=== PATIENT | female | born 1935 | race Two or more races ===

== ENCOUNTER 2021-08-15 08:35 | Inpatient (IN) | payer MEDICARE, OTHER ==
[~2021-08-15] VITALS: Ht 157.5 cm; Wt 70.3 kg
--- NOTE | 2021-08-15 08:35 | NUR ---
PT BIB RA 102 FROM HOME C/O ALTERED,NORMALLY TALKS,LKW TIME 0930 LAST NIGHT. PT IS AAOX0 REACTS TO PHYSICAL STIMULI, NOT IN RESPIRATORY DISTRESS, HOOKED TO SEWER REPAIRER, KEPT RESTED AND COMFORTABLE. WILL CONTINUE TO MONITOR.
--- NOTE | 2021-08-15 08:37 | NUR ---
AT BEDSIDE FOR EVAL.
--- NOTE | 2021-08-15 08:40 | NUR ---
CODE STROKE INITIATED.
--- NOTE | 2021-08-15 08:42 | NUR ---
PT IS WHEELED TO CT SCAN VIA STROKE PROTOCOL.
[2021-08-15] MEDS ORDERED: IOHEXOL-350 100 ML VIAL IV ONE (08:46)
[2021-08-15] MEDS ORDERED: IV NS 0.9% 250 ML IV ONE (08:46)
[2021-08-15] MEDS ORDERED: CT SWABBABLE VALVE TRANS SET 1 EA INFUS.SET MC ONE (08:47)
--- NOTE | 2021-08-15 08:48 | NUR ---
IV LINE ESTABLISHED BLOOD DRAWN AND SENT TO LAB.
[2021-08-15] MEDS ORDERED: IV NS 0.9% 1,000 ML BAG IV ONE (09:00)
[2021-08-15 09:05] LABS: BASOPHILS # (AUTO) 0.1 K/uL (0.0-0.2); BASOPHILS % (AUTO) 0.7 % (0.0-2.0); HEMATOCRIT 48 % (33-45); HEMOGLOBIN 16.2 g/dL (11.5-14.8); LYMPHOCYTES % (AUTO) 20.6 % (20.0-44.0); MEAN CORPUSCULAR HGB CONC 34 g/dl (31.0-36.0); MEAN CORPUSCULAR VOLUME 100 fL (82-100); MONOCYTES # (AUTO) 0.6 K/uL (0.1-1.30); MONOCYTES % (AUTO) 6.6 % (2.0-12.0); NEUTROPHILS # (AUTO) 6.8 K/uL (1.8-8.9); NEUTROPHILS % (AUTO) 71.1 % (43.0-81.0); PLATELET COUNT (AUTO) 324 K/uL (150-450); RED BLOOD CELL COUNT(AUTO) 4.82 MIL/uL (4.0-5.2); WHITE BLOOD COUNT (AUTO) 9.6 K/uL (4.3-11.0)
--- NOTE | 2021-08-15 09:21 | NUR ---
ART PT GRANDSON CALLED PER ART PT COMPLAINT LAST NIGHT ABOUT HAVING ABDOMINAL PAIN AND BURNING SENSATION UPON URINATION.
--- NOTE | 2021-08-15 09:25 | NUR ---
COVID SWAB DONE AND SENT TO LAB
[2021-08-15] MEDS ORDERED: ACETAMINOPHEN 650 MG/SUPP.RECT RC ONE ×2 (09:30→09:37)
--- NOTE | 2021-08-15 09:35 | NUR ---
URINE COLLECTED AND SENT TO LAB
[2021-08-15 09:40] LABS: CHLORIDE 106 mmol/L (98-107); POTASSIUM 3.9 mmol/L (3.5-5.1); SODIUM SERUM 141 mmol/L (136-145)
[2021-08-15 09:41] LABS: ALANINE AMINOTRANSFERASE 16 U/L (12-78); ALBUMIN 3.4 g/dL (3.4-5.0); ALKALINE PHOSPHATASE 81 U/L (46-116); ASPARTATE AMINOTRANSFERASE 22 U/L (15-37); BILIRUBIN,DIRECT 0.2 mg/dL (0.0-0.2); BILIRUBIN,TOTAL 0.5 mg/dL (0.2-1.0); CALCIUM, SERUM 8.7 mg/dL (8.5-10.1); CARBON DIOXIDE 25 mmol/L (21-32); GLUCOSE 185 mg/dL (74-106); UREA NITROGEN, BLOOD 18 mg/dL (7-18)
[2021-08-15] MEDS ORDERED: CEFTRIAXONE 1GM BAG (ER ONLY) 50 ML IV ONE ×2 (09:41→10:00)
[2021-08-15 09:42] LABS: TOTAL PROTEIN, SERUM 8.1 g/dL (6.4-8.2)
[2021-08-15 09:43] LABS: BILIRUBIN,URINE NEGATIVE (NEGATIVE); COLOR,URINE YELLOW (YELLOW); LEUKOCYTE ESTERASE ,URINE NEGATIVE (NEGATIVE); NITRITE, URINE NEGATIVE (NEGATIVE); PROTEIN,URINE NEGATIVE (NEGATIVE); UGLUCOSE NEGATIVE (NEGATIVE); UROBILINOGEN,URINE 0.2 EU/dL (0.2)
[2021-08-15 09:46] LABS: THYROID STIMULATING HORMONE 0.684 uIU/mL (0.358-3.74)
[2021-08-15 09:49] LABS: RBC,URINE 0-2 /HPF (0-2); WBC,URINE NONE SEEN /HPF (0-3)
[2021-08-15 09:50] LABS: BACTERIA,URINE None seen /HPF (None Seen); SQUAMOUS EPITHELIAL CELL,UR Few /HPF (None Seen)
--- NOTE | 2021-08-15 09:55 | NUR ---
DR. LLAMAS SPEAKING TO DR. GILBERT.
[2021-08-15] MEDS ORDERED: IV NS 0.9% 500 ML BAG IV ONE (10:00)
[2021-08-15] MEDS ORDERED: ESCI10TA PO (10:05)
[2021-08-15] MEDS ORDERED: MEMA10TA PO (10:05)
[2021-08-15] MEDS ORDERED: ATOR20TA PO (10:05)
[2021-08-15] MEDS ORDERED: FURO-144 PO (10:05)
[2021-08-15] MEDS ORDERED: ACET325T53 PO (10:05)
[2021-08-15] MEDS ORDERED: METO-358 PO (10:05)
[2021-08-15] MEDS ORDERED: APIX5TAB PO (10:05)
[2021-08-15] MEDS ORDERED: DILT-4 PO (10:05)
[2021-08-15] MEDS ORDERED: PANT20TA17 PO (10:05)
[2021-08-15] MEDS ORDERED: QUET100T PO (10:05)
[2021-08-15] MEDS ORDERED: MAG HYDROX/AL HYDROX/SIMETH 30 ML UDC PO PRN (12:00)
[2021-08-15] MEDS ORDERED: ONDANSETRON HCL/PF 4 MG/2 ML VIAL IVP PRN (12:00)
[2021-08-15] MEDS ORDERED: Z GUARD REMEDY 2 OZ OINT TP PRN (12:00)
[2021-08-15] MEDS ORDERED: ACETAMINOPHEN 325 MG TABLET PO PRN (12:00)
[2021-08-15] MEDS ORDERED: MAGNESIUM HYDROXIDE 30 ML UDC PO PRN (12:00)
[2021-08-15] MEDS ORDERED: LABETALOL 20 MG/4 ML VIAL IV ONE (13:00)
[2021-08-15] MEDS ORDERED: LABETALOL HCL IV 100MG VIAL ONE (13:15)
[2021-08-15] MEDS: IV NS 0.9% 1,000 ML IV PRN (16:48)
[2021-08-15] MEDS: APIXABAN 5 MG TABLET PO SCH (17:00)
--- NOTE | 2021-08-15 17:03 | NUR ---
PO MEDS NOT GIVEN PT FAILED SWALLOW EVAL.
--- NOTE | 2021-08-15 17:42 | NUR ---
LATEST BP 203/114 REPORTED TO AWAITING RESPONSE.
[2021-08-15] MEDS ORDERED: hydrALAZINE HCL IV 20 MG VIAL ONE (17:48)
--- NOTE | 2021-08-15 22:00 | NUR ---
PATIENT IN BED RESTING. VSS. NO ACUTE DISTRESS NOTED. WILL CONTINUE TO MONITOR. PATIENT CONNECTED TO MONITORS.
[2021-08-16] MEDS ORDERED: hydrALAZINE HCL IV 20 MG VIAL ONE (02:54)
[2021-08-16] MEDS: hydrALAZINE HCL IV 20 MG VIAL IV PRN (03:01)
--- NOTE | 2021-08-16 06:10 | NUR ---
ROOM 308-1 AFTER SHIFT CHANGE
[2021-08-16 06:19] LABS: BASOPHILS # (AUTO) 0.1 K/uL (0.0-0.2); BASOPHILS % (AUTO) 0.7 % (0.0-2.0); EOSINOPHILS % (AUTO) 0.7 % (0.0-6.0); HEMATOCRIT 45 % (33-45); HEMOGLOBIN 15.2 g/dL (11.5-14.8); LYMPHOCYTES # (AUTO) 2.3 K/uL (0.8-4.8); LYMPHOCYTES % (AUTO) 21.5 % (20.0-44.0); MEAN CORPUSCULAR HGB CONC 34 g/dl (31.0-36.0); MEAN CORPUSCULAR VOLUME 100 fL (82-100); MONOCYTES # (AUTO) 0.8 K/uL (0.1-1.30); MONOCYTES % (AUTO) 7.4 % (2.0-12.0); NEUTROPHILS # (AUTO) 7.6 K/uL (1.8-8.9); NEUTROPHILS % (AUTO) 69.7 % (43.0-81.0); PLATELET COUNT (AUTO) 318 K/uL (150-450); RED BLOOD CELL COUNT(AUTO) 4.46 MIL/uL (4.0-5.2); WHITE BLOOD COUNT (AUTO) 10.9 K/uL (4.3-11.0)
[2021-08-16] MEDS: IV NS 0.9% 1,000 ML IV PRN (06:31)
[2021-08-16 06:52] LABS: CALCIUM, SERUM 8.8 mg/dL (8.5-10.1); CREATININE 0.7 mg/dL (0.6-1.3); MAGNESIUM 1.9 mg/dL (1.8-2.4); PHOSPHORUS 3.9 mg/dL (2.5-4.9); POTASSIUM 3.7 mmol/L (3.5-5.1)
[2021-08-16] MEDS: PANTOPRAZOLE 40 MG TABLET.DR PO SCH (07:30)
--- NOTE | 2021-08-16 07:51 | NUR ---
PO MED NOT GIVEN PT STILL NOT CLEARED BY SPEECH THERAPIST FOR FAILED SWALLOW EVAL.
--- NOTE | 2021-08-16 07:58 | NUR ---
report given to Jose L ARANDA for [employer].
--- NOTE | 2021-08-16 08:20 | NUR ---
PANTRY GOODS MAKER NOTE RECEIVED REPORT FROM MANOJ CRUZ. PATIENT GIVEN IV ATB ROCEPHIN, LOBETALOL AND TOTAL OF 1.5 LITERS OF FLUIDS. WILL WAIT FOR T]PATIENT TRANSFER.
[2021-08-16] MEDS: CEFTRIAXONE 1 G in IV D5W 50 ML IV SCH (09:00)
--- NOTE | 2021-08-16 09:15 | NUR ---
GROUP INSURANCE SPECIAL AGENT NOTE RECEIVED PATIENT FROM ER TRANSPORTED VIA GURNEY. PATIENT IS ALERT AND NON VERBAL. PATIENT DOES NOT APPEAR TO BE IN PAIN AND DISCOMFORT AT THIS TIME. IV LINE AT LEFT A G 18, ON SALINE LOCK, PATENT AND INTACT. PATIENT ON ROOM AIR WITH NO SIGNS OF RESPIRATORY DISTRESS. SAFETY MEASURES ENSURED WITH BED LOCKED AND AT LOWEST POSITION. CALL LIGHT WITHIN REACH AT ALL TIMES. WILL CONTINUE TO MONITOR PATIENT.
[2021-08-16] MEDS: MEMANTINE HCL 5 MG TABLET PO SCH (09:34)
[2021-08-16] MEDS: METOPROLOL SUCCINATE 50 MG TAB.SR.24H PO SCH (09:35)
[2021-08-16] MEDS: ESCITALOPRAM OXALATE (10 MG) 10 MG TABLET PO SCH (09:35)
[2021-08-16] MEDS: DILTIAZEM HCL CD 240 MG PO SCH (09:36)
[2021-08-16] MEDS: APIXABAN 5 MG TABLET PO SCH ×2 (09:38→16:25)
[2021-08-16 16:32] VITALS: BP 134/93
--- NOTE | 2021-08-16 19:00 | NUR ---
HEALTH CARE CONSULTANT NOTE PATIENT FROM ER TRANSPORTED VIA GURNEY. PATIENT IS ALERT AND NON VERBAL. PATIENT DOES NOT APPEAR TO BE IN PAIN AND DISCOMFORT AT THIS TIME. IV LINE AT LEFT A G 18, ON SALINE LOCK, PATENT AND INTACT. PATIENT ON ROOM AIR WITH NO SIGNS OF RESPIRATORY DISTRESS. SAFETY MEASURES ENSURED WITH BED LOCKED AND AT LOWEST POSITION. CALL LIGHT WITHIN REACH AT ALL TIMES. WILL ENDORSE PATIENT FOR CONTINUITY OF CARE.
--- NOTE | 2021-08-16 19:00 | NUR ---
PRINTING PLATE MAKER OPENING NOTE RECEIVED PT IN BED, RESTING A/OX 1-2, PAKISTANI SPEAKING PT STABLE ON ROOM AIR. NO S/S OF RESPIRATORY DISTRESS. PT IS ON EXTERNAL DEPUTY ASSESSOR READING A FLUTTER / ST @ 103. NO C/O PAIN AT THIS TIME. IV ACCESS IN LEFT AC # 18, NS INFUSING @ 100ML/HR, IV IS INTACT, PATENT, AND FLUSHING WELL. SAFETY MEASURES MAINTAINED AT ALL TIMES. BED IN LOWEST LOCKED POSITION, HOB ELEVATED, SIDE RAILS UP X2. CALL LIGHT AND TABLE WITHIN REACH. WILL CONTINUE WITH PLAN OF CARE.
[2021-08-16 20:00] VITALS: BP 142/86
[2021-08-17] VITALS: BP 165/90
[2021-08-17] MEDS: IV NS 0.9% 1,000 ML IV PRN ×2 (02:59→18:18)
[2021-08-17] MEDS: hydrALAZINE HCL IV 20 MG VIAL IV PRN (03:12)
--- NOTE | 2021-08-17 03:12 | NUR ---
PT'S BP 165/90, HR 93, TEMP 98.0, RR 20, 02 SAT 96%, PER ORDER ADMINISTERED HYDRALAZINE 20MG/IML IV Q 4H PRN FOR SBP > 160. WILL CONTINUE TO MONITOR.
[2021-08-17 04:00] VITALS: BP 143/92
[2021-08-17 06:25] LABS: BASOPHILS # (AUTO) 0.1 K/uL (0.0-0.2); BASOPHILS % (AUTO) 0.7 % (0.0-2.0); EOSINOPHILS % (AUTO) 2.9 % (0.0-6.0); HEMATOCRIT 42 % (33-45); HEMOGLOBIN 13.9 g/dL (11.5-14.8); LYMPHOCYTES # (AUTO) 1.7 K/uL (0.8-4.8); LYMPHOCYTES % (AUTO) 16.9 % (20.0-44.0); MEAN CORPUSCULAR HGB CONC 33 g/dl (31.0-36.0); MEAN CORPUSCULAR VOLUME 101 fL (82-100); MONOCYTES # (AUTO) 0.9 K/uL (0.1-1.30); MONOCYTES % (AUTO) 8.3 % (2.0-12.0); NEUTROPHILS # (AUTO) 7.3 K/uL (1.8-8.9); NEUTROPHILS % (AUTO) 71.2 % (43.0-81.0); PLATELET COUNT (AUTO) 282 K/uL (150-450); RED BLOOD CELL COUNT(AUTO) 4.16 MIL/uL (4.0-5.2); WHITE BLOOD COUNT (AUTO) 10.3 K/uL (4.3-11.0)
--- NOTE | 2021-08-17 06:38 | NUR ---
TELETYPE OPERATOR CLOSING NOTE PT IS AWAKE IN BED AT THIS TIME. A/OX1 ARMENIA SPEAKING, PT IS BEDREST, STABLE ON ROOM AIR, NO SOB NOTED, NO S/S OF RESPIRATORY DISTRESS. PT IS ON EXTERNAL WANT AD RECEIVER READING A FIB/ FLUTTER @ 113. SKIN IS INTACT, IV ACCESS IS INTACT AND PATENT, INFUSING NS @75ML/HR. ALL NEEDS HAVE BEEN MET. CATHETER CARE PROVIDED, DRAINING CLEAR, SUSANNE URINE, SAFETY, SEIZURE, AND ASPIRATION PRECAUTIONS MAINTAINED AT ALL TIMES. BED IN LOWEST, LOCKED POSITION WITH BED ALARM ON, SIDE RAILS UP X2. HOB ELEVATED. CALL LIGHT AND TABLE WITHIN REACH. WILL ENDORSE TO ONCOMING NURSE FOR MARTÍN.
[2021-08-17 07:16] LABS: CALCIUM, SERUM 8.7 mg/dL (8.5-10.1); CREATININE 0.6 mg/dL (0.6-1.3); MAGNESIUM 1.7 mg/dL (1.8-2.4); PHOSPHORUS 3.4 mg/dL (2.5-4.9); POTASSIUM 3.4 mmol/L (3.5-5.1)
--- NOTE | 2021-08-17 07:19 | NUR ---
STABLEHAND OPENING NOTES RECEIVED PATIENT IN BED, RESTING A/OX 1, [place]EL[place] SPEAKING PT STABLE ON ROOM AIR. NO S/S OF ACUTE DISTRESS. PT IS ON EXTERNAL OPTOMETRIC TECHNICIAN READING A FLUTTER, A-FIB HR @ 122. NO C/O OR S/SX OF PAIN NOTED AT THIS TIME. IV ACCESS IN LEFT AC # 18, NS INFUSING @ 100ML/HR, IV IS INTACT, PATENT, AND FLUSHING WELL. SAFETY MEASURES IN PLACE. BED IN LOWEST LOCKED POSITION, KEPT HOB ELEVATED, SIDE RAILS UP X2. CALL LIGHT AND TABLE WITHIN REACH. WILL CONTINUE TO MONITOR ACCORDINGLY.
[2021-08-17] MEDS: PANTOPRAZOLE 40 MG TABLET.DR PO SCH (07:26)
[2021-08-17 08:00] VITALS: BP 131/90
[2021-08-17] MEDS: DILTIAZEM HCL CD 240 MG PO SCH (08:38)
[2021-08-17] MEDS: ESCITALOPRAM OXALATE (10 MG) 10 MG TABLET PO SCH (08:38)
[2021-08-17] MEDS: MEMANTINE HCL 5 MG TABLET PO SCH (08:38)
[2021-08-17] MEDS: METOPROLOL SUCCINATE 50 MG TAB.SR.24H PO SCH (08:39)
[2021-08-17] MEDS: APIXABAN 5 MG TABLET PO SCH ×2 (08:40→17:12)
[2021-08-17] MEDS ORDERED: Magnesium 1GM/D5W 100ML PREMIX 100 ML IV SCH (09:00)
[2021-08-17] MEDS ORDERED: POTASSIUM CHLORIDE 20 MEQ TAB.PRT.SR PO ONE (09:00)
[2021-08-17] MEDS: CEFTRIAXONE 1 G in IV D5W 50 ML IV SCH (10:09)
[2021-08-17 12:00] VITALS: BP 131/90
[2021-08-17 16:00] VITALS: BP 156/78
--- NOTE | 2021-08-17 18:30 | NUR ---
TESTER ELECTRONIC SCALE CLOSING NOTES PATIENT IN BED, RESTING A/OX 1, ZIMBABWEAN SPEAKING PT STABLE ON ROOM AIR. NO S/S OF ACUTE DISTRESS. PT IS ON EXTERNAL CREATIVE ARTS THERAPIST READING A-FIB HR @ 78. NO C/O OR S/SX OF PAIN NOTED AT THIS TIME. IV ACCESS IN LEFT AC # 18, NS INFUSING @ 100ML/HR, IV IS INTACT, PATENT, AND FLUSHING WELL. SAFETY MEASURES IN PLACE. BED IN LOWEST LOCKED POSITION, KEPT HOB ELEVATED, SIDE RAILS UP X2. CALL LIGHT AND TABLE WITHIN REACH. ALL NEEDS ATTENDED AND MET, DUE MEDS GIVEN ORDERED. WILL ENDORSE TO ONCOMING SHIFT FOR MARTÍN.
--- NOTE | 2021-08-17 19:45 | NUR ---
TELERN ASLEEP, EASILY AWAKENED WHEN CALLED, NO DISCOMFORTS, NO SOB. PATIENT ON RA, V/S STABLE. AFIB CONTROLLED ON THE MONITOR. PRESENT IVF INFUSING WELL, NO NEEDS AT THIS TIME. CONTINUED MONITORING.
[2021-08-17 20:00] VITALS: BP 151/82
[2021-08-18] VITALS: BP 163/93
[2021-08-18 04:00] VITALS: BP_SYST 160; BP_DIAS 104; BP_DIAS 69
[2021-08-18] MEDS: IV NS 0.9% 1,000 ML IV PRN (06:23)
--- NOTE | 2021-08-18 06:50 | NUR ---
TELERN REMAINS AFIB CONTROLLED RATE OF 81 PRESENT IVF INFUSING WELL, ALL NEEDS MADE, KEPT COMFORTABLE. REPOSITIONED
[2021-08-18 06:59] LABS: BASOPHILS % (AUTO) 0.5 % (0.0-2.0); EOSINOPHILS % (AUTO) 4.2 % (0.0-6.0); HEMATOCRIT 40 % (33-45); HEMOGLOBIN 13.3 g/dL (11.5-14.8); LYMPHOCYTES # (AUTO) 1.6 K/uL (0.8-4.8); LYMPHOCYTES % (AUTO) 18.3 % (20.0-44.0); MEAN CORPUSCULAR HGB CONC 34 g/dl (31.0-36.0); MEAN CORPUSCULAR VOLUME 101 fL (82-100); MONOCYTES # (AUTO) 0.8 K/uL (0.1-1.30); MONOCYTES % (AUTO) 8.6 % (2.0-12.0); NEUTROPHILS % (AUTO) 68.4 % (43.0-81.0); PLATELET COUNT (AUTO) 252 K/uL (150-450); RED BLOOD CELL COUNT(AUTO) 3.92 MIL/uL (4.0-5.2); WHITE BLOOD COUNT (AUTO) 8.8 K/uL (4.3-11.0)
--- NOTE | 2021-08-18 07:38 | NUR ---
RN OPENING NOTE- PATIENT IN BED, RESTING A/O TO SELF ONLY PT STABLE ON ROOM AIR. NO S/S OF ACUTE DISTRESS. PT IS ON EXTERNAL AUTO MACHINIST A-FIB HR SR 91/M . NO C/O OR S/SX OF PAIN NOTED AT THIS TIME. IV ACCESS IN LEFT AC # 18, NS INFUSING @ 75ML/HR, IV IS INTACT, PATENT, AND FLUSHING WELL. SAFETY MEASURES IN PLACE. BED IN LOWEST LOCKED POSITION, KEPT HOB ELEVATED, SIDE RAILS UP X2. CALL LIGHT AND TABLE WITHIN REACH. WILL CONTINUE TO MONITOR ACCORDINGLY.
[2021-08-18 08:00] VITALS: BP 160/93
[2021-08-18 08:11] LABS: CALCIUM, SERUM 7.9 mg/dL (8.5-10.1); CARBON DIOXIDE 24 mmol/L (21-32); CHLORIDE 107 mmol/L (98-107); CREATININE 0.5 mg/dL (0.6-1.3); GLUCOSE 102 mg/dL (74-106); MAGNESIUM 1.8 mg/dL (1.8-2.4); PHOSPHORUS 3.3 mg/dL (2.5-4.9); POTASSIUM 3.3 mmol/L (3.5-5.1); SODIUM SERUM 139 mmol/L (136-145); UREA NITROGEN, BLOOD 15 mg/dL (7-18)
[2021-08-18] MEDS: PANTOPRAZOLE 40 MG TABLET.DR PO SCH (08:27)
[2021-08-18] MEDS: ESCITALOPRAM OXALATE (10 MG) 10 MG TABLET PO SCH (09:00)
[2021-08-18] MEDS: MEMANTINE HCL 5 MG TABLET PO SCH (09:00)
[2021-08-18] MEDS: DILTIAZEM HCL CD 240 MG PO SCH (09:04)
[2021-08-18] MEDS: METOPROLOL SUCCINATE 50 MG TAB.SR.24H PO SCH (09:04)
[2021-08-18] MEDS: APIXABAN 5 MG TABLET PO SCH ×2 (09:08→16:47)
[2021-08-18] MEDS ORDERED: POTASSIUM CHLORIDE 20 MEQ TAB.PRT.SR PO SCH ×2 (11:30→14:00)
[2021-08-18] MEDS ORDERED: POTASSIUM CHLORIDE 20 MEQ TAB.PRT.SR PO ONE (11:30)
[2021-08-18 16:00] VITALS: BP 160/80
--- NOTE | 2021-08-18 17:01 | NUR ---
RN NOTE- IV SITE TO LT ARM INFILTRATED. REMOVED PERIPHERAL IV, CLEANED AND DSG APPLIED.
--- NOTE | 2021-08-18 18:53 | NUR ---
RN NOTE- 22G IV INSERTED TO RFA. TOLERATED WELL.
--- NOTE | 2021-08-18 19:23 | NUR ---
RN CLOSING NOTE- PATIENT IN BED, RESTING A/O TO SELF ONLY PT STABLE ON ROOM AIR. NO S/S OF ACUTE DISTRESS. PT IS ON EXTERNAL CONCRETE SMOOTHER A-FIB HR SR 90/M . NO C/O OR S/SX OF PAIN NOTED AT THIS TIME. IV ACCESS IN RFA AC # 22, NS INFUSING @ 75ML/HR, IV IS INTACT, PATENT, AND FLUSHING WELL. SAFETY MEASURES IN PLACE. BED IN LOWEST LOCKED POSITION, KEPT HOB ELEVATED, SIDE RAILS UP X2. CALL LIGHT AND TABLE WITHIN REACH. WILL CONTINUE TO MONITOR ACCORDINGLY.
--- NOTE | 2021-08-18 19:45 | NUR ---
TELERN FULLY AWAKE.NO NEEDS MADE. REPOSITIONED PER PATIENTS' COMFORT. IVF INFUSING WELL.
[2021-08-18 20:00] VITALS: BP 169/98
[2021-08-19] VITALS: BP 179/97
[2021-08-19 04:00] VITALS: BP 147/78
--- NOTE | 2021-08-19 04:09 | NUR ---
MSRN DISREGARD RECENT ADMISSION DATA, DATED AUG 19 AT 0158. WAS ENTERED AT THE WRONG PATIENT.
[2021-08-19 06:41] LABS: BASOPHILS % (AUTO) 0.5 % (0.0-2.0); HEMATOCRIT 37 % (33-45); HEMOGLOBIN 12.6 g/dL (11.5-14.8); LYMPHOCYTES # (AUTO) 1.6 K/uL (0.8-4.8); LYMPHOCYTES % (AUTO) 17.8 % (20.0-44.0); MEAN CORPUSCULAR HGB CONC 34 g/dl (31.0-36.0); MEAN CORPUSCULAR VOLUME 100 fL (82-100); MONOCYTES # (AUTO) 0.8 K/uL (0.1-1.30); MONOCYTES % (AUTO) 8.8 % (2.0-12.0); NEUTROPHILS % (AUTO) 68.9 % (43.0-81.0); PLATELET COUNT (AUTO) 239 K/uL (150-450); RED BLOOD CELL COUNT(AUTO) 3.73 MIL/uL (4.0-5.2); WHITE BLOOD COUNT (AUTO) 8.8 K/uL (4.3-11.0)
--- NOTE | 2021-08-19 07:00 | NUR ---
TELERN REMAINS AFIB ON THE MONITOR, COOPERATIVE, PRESENT IVF INFUSING WELL.
[2021-08-19 07:04] LABS: CREATININE 0.6 mg/dL (0.6-1.3); MAGNESIUM 1.9 mg/dL (1.8-2.4)
[2021-08-19] MEDS: PANTOPRAZOLE 40 MG TABLET.DR PO SCH (07:30)
--- NOTE | 2021-08-19 07:37 | NUR ---
JAVASCRIPT FRONT END DEVELOPER OPENING NOTES RECEIVED PATIENT IN BED, AWAKE, A/O X1. PATIENT ON ROOM AIR; BREATHING EVEN AND UNLABORED; NO SOB NOTED AT THIS TIME. NO COMPLAINS OF PAIN. TELE MONITOR WITH A CURRENT READING OF ST 110. IV ACCESS AT RFA G # 22 RUNNING NS @ 75 MLS/HR. MARINO CATH IN PLACE DRAINING YELLOW URINE. SAFETY PRECAUTIONS IN PLACE; BED IN LOW POSITION AND LOCKED, RAILS UP X2, CALL LIGHT WITHIN REACH. WILL CONTINUE TO MONITOR PATIENT.
[2021-08-19 08:00] VITALS: BP 143/101
[2021-08-19] MEDS: DILTIAZEM HCL CD 240 MG PO SCH (08:59)
[2021-08-19] MEDS: APIXABAN 5 MG TABLET PO SCH ×2 (09:00→16:13)
[2021-08-19] MEDS: METOPROLOL SUCCINATE 50 MG TAB.SR.24H PO SCH (09:00)
[2021-08-19] MEDS: MEMANTINE HCL 5 MG TABLET PO SCH (09:00)
[2021-08-19] MEDS: ESCITALOPRAM OXALATE (10 MG) 10 MG TABLET PO SCH (09:00)
--- NOTE | 2021-08-19 09:00 | NUR ---
LIVESTOCK TRADER NOTES PATIENT REFUSES TO TAKE HER MEDS. WAS HOLDING THEM IN HER HAND AND NOT TAKING THEM. WENT TO CRUSH WITH APPLE SAUCE. WOULD NOT OPEN HER MOUTH SAYING SHE WILL NOT TAKE ANYTHING.
[2021-08-19] MEDS ORDERED: POTASSIUM CHLORIDE 20 MEQ TAB.PRT.SR PO SCH (11:00)
[2021-08-19] MEDS ORDERED: POTASSIUM CHLORIDE 10 MEQ/50 ML PREMIXED IVPB FOR PERIPHERAL LINE IV ONE ×2 (11:30→13:00)
[2021-08-19 16:00] VITALS: BP 163/99
--- NOTE | 2021-08-19 18:42 | NUR ---
VETERINARY LABORATORY DIAGNOSTICIAN CLOSING NOTES PATIENT REMAINS IN BED, AWAKE, A/O X1. PATIENT ON ROOM AIR; BREATHING EVEN AND UNLABORED; NO SOB NOTED DURING SHIFT. NO COMPLAINS OF PAIN. TELE MONITOR WITH A CURRENT READING OF ST 120. IV ACCESS AT [facility]; SL. MARINO CATH IN PLACE DRAINING YELLOW URINE WITH DAILY OUTPUT OF 500 MLS. ALL NEEDS ATTENDED DURING THE DAY. SAFETY PRECAUTIONS IN PLACE; BED IN LOW POSITION AND LOCKED, RAILS UP X2, CALL LIGHT WITHIN REACH. WILL ENDORSE TO CS ASSOCIATE NURSE.
--- NOTE | 2021-08-19 19:10 | NUR ---
CONTINUITY OF CARE Patient in bd, awake. Patient is A/O x1 per report by RN speaking Estonian. Patient stable on room air, AFIB controlled in the Tele monitor. Chowdhury cath intact, output yellow urine. Fall precaution maintained.
[2021-08-19 20:00] VITALS: BP 161/107
[2021-08-19 20:10] VITALS: BP 161/107
[2021-08-20] VITALS: BP 166/120
[2021-08-20] MEDS: hydrALAZINE HCL IV 20 MG VIAL IV PRN (00:35)
--- NOTE | 2021-08-20 00:37 | NUR ---
BP HIGH Elevated BP 166/120 Pulse 124 Given Hydralazine IV. Will reassess.
[2021-08-20] MEDS ORDERED: DILTIAZEM HCL 50 MG IV IV ONE ×2 (01:00→02:00)
--- NOTE | 2021-08-20 01:11 | NUR ---
AFIB UNCONTROLLED AFib HR 140's in the Tele monitor. Patient no c/o pain. Stat EKG. Notified CRISTAL Tapia with results. Patient missed am dose of Cardizem oral per report. New order placed. Will cont to monitor patient.
[2021-08-20] MEDS ORDERED: DILTIAZEM HCL 25 MG IV ONE (01:31)
--- NOTE | 2021-08-20 01:58 | NUR ---
CARDIZEM IV x1 AFib uncontrolled HR 128 Cardizem IVP given, will reassess.
[2021-08-20] MEDS ORDERED: DILTIAZEM HCL 25 MG IV IV ONE (02:00)
[2021-08-20 04:00] VITALS: BP 134/64
--- NOTE | 2021-08-20 06:06 | NUR ---
END OF SHIFT REPORT Patient awake, appear comfortable in bed. BP improved after IV Hydralazine. AFib HR 130's in the Tele monitor, no c/o chest pain. Chowdhury cath care done, patient had BM this shift. Afebrile. Plan for dc planning. Will endorse to oncoming RN.
[2021-08-20] MEDS: PANTOPRAZOLE 40 MG TABLET.DR PO SCH (07:39)
--- NOTE | 2021-08-20 07:47 | NUR ---
SPECIAL SERVICES COORDINATOR OPENING NOTES RECEIVED PATIENT IN BED, AWAKE, A/O X1. PATIENT ON ROOM AIR; BREATHING EVEN AND UNLABORED; NO SOB NOTED AT THIS TIME. NO COMPLAINS OF PAIN. TELE MONITOR WITH A CURRENT READING AFIB HR AT 110. IV ACCESS AT RFA G # 22 INTACT, PATENT AND FLUSHES WELL. MARINO CATH IN PLACE DRAINING YELLOW URINE. SAFETY PRECAUTIONS IN PLACE; BED IN LOW POSITION AND LOCKED, RAILS UP X2, CALL LIGHT WITHIN REACH. WILL CONTINUE TO MONITOR PATIENT ACCORDINGLY.
[2021-08-20 07:53] LABS: CALCIUM, SERUM 8.2 mg/dL (8.5-10.1); CARBON DIOXIDE 27 mmol/L (21-32); CHLORIDE 103 mmol/L (98-107); CREATININE 0.4 mg/dL (0.6-1.3); GLUCOSE 99 mg/dL (74-106); POTASSIUM 3.6 mmol/L (3.5-5.1); SODIUM SERUM 139 mmol/L (136-145); UREA NITROGEN, BLOOD 15 mg/dL (7-18)
[2021-08-20 08:00] VITALS: BP 122/73
[2021-08-20] MEDS: MEMANTINE HCL 5 MG TABLET PO SCH (08:22)
[2021-08-20] MEDS: DILTIAZEM HCL CD 240 MG PO SCH (08:22)
[2021-08-20] MEDS: ESCITALOPRAM OXALATE (10 MG) 10 MG TABLET PO SCH (08:22)
[2021-08-20] MEDS: METOPROLOL SUCCINATE 50 MG TAB.SR.24H PO SCH (08:23)
[2021-08-20] MEDS: APIXABAN 5 MG TABLET PO SCH (08:23)
[2021-08-20 08:58] VITALS: BP 122/73
[2021-08-20] MEDS ORDERED: FUROSEMIDE 40 MG/4 ML VIAL IV SCH (09:00)
[2021-08-20 12:00] VITALS: BP 141/70
[2021-08-20 12:48] VITALS: BP 141/70
--- NOTE | 2021-08-20 16:19 | NUR ---
NUCLEAR FUEL PROCESSING TECHNICIAN NOTES DISCHARGED PATIENT IN STABLE CONDITION, VS WITHIN NORMAL LIMITS. HOME INSTRUCTIONS/ MEDICATIONS/ FOLLOW UP DISCUSSED WITH CAREGIVER, CAREGIVER VERBALIZED UNDERSTANDING. IV ACCESS REMOVED, COVERED WITH GAUZE, NO S/SX OF BLEEDING NOTED. TELE BOX REMOVED. ARMBAND REMOVED. WHEELED PATIENT TO LOBBY ACCOMPANIED BY ALISA (ANNELISE) AND RACHAEL (ANNELISE). LEFT UNIT WITH CAREGIVER IN STABLE CONDITION. CHARGE NURSE AND MD AWARE OF DISCHARGE.
== END 2021-08-20 16:11 | DRG 871 ==
LOC: ER 08:37 → TRANSITION 10:39 → TELE 08-16 08:15
PROVIDERS: ADMIT Internal Medicine; ATTEND Legal Medicine
DX: A41.9 Sepsis, unspecified organism (principal); G93.41 Metabolic encephalopathy; I48.20 Chronic atrial fibrillation, unspecified; E87.2 Acidosis; Z20.822 Contact with and (suspected) exposure to COVID-19; F32.9 Major depressive disorder, single episode, unspecified; F41.9 Anxiety disorder, unspecified; F03.90 Unspecified dementia, unspecified severity, without behavioral disturbance, psychotic disturbance, mood disturbance, and anxiety; Z79.01 Long term (current) use of anticoagulants; J20.9 Acute bronchitis, unspecified; I11.0 Hypertensive heart disease with heart failure; I50.9 Heart failure, unspecified; R13.10 Dysphagia, unspecified
CPT/HCPCS: 36415; 70450-TC; 70496-TC; 70498-TC; 71045-TC; 80048-TC; 80076-TC; 81001; 83605-TC; 83735-TC; 84100-TC; 84443-TC; 84484-TC; 85025-TC; 85730-TC; 87040-TC; 87081-TC; 92507-TC; 92521; 92526; 92611-TC; 97112-TC; 97116-TC; 97530-TC; C9803; G0378; J0360; J0696; J1940; J3475; J3480; J3490; J7030; J7040; J7042; J7050; J7060; Q9967

== ENCOUNTER 2021-09-07 21:00 | Inpatient (IN) | payer MEDICARE, OTHER ==
[~2021-09-07] VITALS: Ht 157.5 cm; Wt 82.1 kg
[~2021-09-07 21:00] MED LIST: ACET325T53 PO; APIX5TAB PO; ATOR20TA PO; DILT-4 PO; ESCI10TA PO; FURO-144 PO; MEMA10TA PO; METO-358 PO; PANT20TA17 PO; QUET100T PO
--- NOTE | 2021-09-07 21:06 | NUR ---
PT BIBRA C/O ABD PAIN AND DYSURIA. PT AAOX4 BREATHING EVENLY AND UNLABORED. PT ATTACHED TO MONITOR AND POX. MD AT BEDSIDE. SKIN IS WARM AND DRY. PT GIVEN BLANKET AND CALL LIGHT WITHIN REACH
[2021-09-07] MEDS ORDERED: IV NS 0.9% 500 ML BAG IV ONE (21:30)
[2021-09-07 21:41] LABS: BASOPHILS # (AUTO) 0.1 K/uL (0.0-0.2); BASOPHILS % (AUTO) 0.8 % (0.0-2.0); EOSINOPHILS % (AUTO) 2.9 % (0.0-6.0); HEMATOCRIT 40 % (33-45); HEMOGLOBIN 12.9 g/dL (11.5-14.8); LYMPHOCYTES # (AUTO) 2.2 K/uL (0.8-4.8); MEAN CORPUSCULAR HGB CONC 33 g/dl (31.0-36.0); MEAN CORPUSCULAR VOLUME 101 fL (82-100); MONOCYTES # (AUTO) 0.7 K/uL (0.1-1.30); MONOCYTES % (AUTO) 7.8 % (2.0-12.0); NEUTROPHILS % (AUTO) 64.5 % (43.0-81.0); PLATELET COUNT (AUTO) 270 K/uL (150-450); WHITE BLOOD COUNT (AUTO) 9.4 K/uL (4.3-11.0)
--- NOTE | 2021-09-07 21:50 | NUR ---
TAKEN TO CT
[2021-09-07 21:59] LABS: ALANINE AMINOTRANSFERASE 15 U/L (12-78); ALBUMIN 2.8 g/dL (3.4-5.0); ALKALINE PHOSPHATASE 76 U/L (46-116); ASPARTATE AMINOTRANSFERASE 14 U/L (15-37); BILIRUBIN,DIRECT 0.1 mg/dL (0.0-0.2); BILIRUBIN,TOTAL 0.2 mg/dL (0.2-1.0); CALCIUM, SERUM 8.8 mg/dL (8.5-10.1); CARBON DIOXIDE 31 mmol/L (21-32); CHLORIDE 106 mmol/L (98-107); CREATININE 1.2 mg/dL (0.6-1.3); GLUCOSE 116 mg/dL (74-106); LIPASE 105 U/L (73-393); POTASSIUM 4.1 mmol/L (3.5-5.1); SODIUM SERUM 143 mmol/L (136-145); TOTAL PROTEIN, SERUM 6.8 g/dL (6.4-8.2); UREA NITROGEN, BLOOD 16 mg/dL (7-18)
--- NOTE | 2021-09-07 22:02 | NUR ---
RETURNED FROM CT
--- NOTE | 2021-09-07 22:10 | NUR ---
URINE SENT TO LAB
[2021-09-07 22:20] LABS: BILIRUBIN,URINE SMALL (NEGATIVE); COLOR,URINE YELLOW (YELLOW); LEUKOCYTE ESTERASE ,URINE Small (NEGATIVE); NITRITE, URINE Negative (NEGATIVE); PH,URINE 5.5 (5.0-8.0); PROTEIN,URINE Negative (NEGATIVE); UGLUCOSE Negative (NEGATIVE); UROBILINOGEN,URINE 0.2 EU/dL (0.2)
[2021-09-07 22:27] LABS: RBC,URINE NONE SEEN /HPF (0-2)
[2021-09-07 22:28] LABS: BACTERIA,URINE 1+ /HPF (None Seen); SQUAMOUS EPITHELIAL CELL,UR Few /HPF (None Seen)
--- NOTE | 2021-09-07 22:50 | NUR ---
TAKEN TO CT
[2021-09-07] MEDS ORDERED: IV NS 0.9% 1,000 ML BAG IV ONE (23:00)
--- NOTE | 2021-09-07 23:14 | NUR ---
JASON SENT TO LAB
[2021-09-07] MEDS ORDERED: CEFTRIAXONE 1GM BAG (ER ONLY) 50 ML IV ONE ×2 (23:29→23:30)
[2021-09-07] MEDS ORDERED: METRONIDAZOLE 500MG/ NS 100ML 100 ML IV ONE ×2 (23:29→23:30)
[2021-09-07 23:37] LABS: SERUM AMMONIA 13 umol/L (11-32)
--- NOTE | 2021-09-07 23:40 | NUR ---
BLOOD CULTURES SENT TO LAB
--- NOTE | 2021-09-07 23:47 | NUR ---
PAGED EPIC FOR DR TO
--- NOTE | 2021-09-08 00:13 | NUR ---
PAVEL AHN ON THE PHONE W/ DR PINA
--- NOTE | 2021-09-08 00:26 | NUR ---
CALLED HOUSE SUP FOR TELE BED
--- NOTE | 2021-09-08 00:43 | NUR ---
GAVE REPORT TO MANOJ PROCTOR FOR MARTÍN
[2021-09-08 00:55] VITALS: BP 172/88
--- NOTE | 2021-09-08 00:55 | NUR ---
PT WAS TRANSFERRED TO 327 UNDER ACLS
--- NOTE | 2021-09-08 00:55 | NUR ---
PATIENT ARRIVED FROM ER, AWAKE, A/O X1, CONFUSED. NO S/S OF DISTRESS NOTED. CALL LIGHT WITHIN REACH. BED ALARM ON. BED IN LOWEST AND LOCKED POSITION. HOB ELEVATED.
[2021-09-08] MEDS ORDERED: ACETAMINOPHEN 325 MG TABLET PO PRN (01:30)
[2021-09-08] MEDS ORDERED: MORPHINE SULFATE INJ 2 MG/ML DISP.SYRIN IV PRN (01:30)
[2021-09-08] MEDS ORDERED: ONDANSETRON HCL/PF 4 MG/2 ML VIAL IV PRN (01:30)
[2021-09-08] MEDS: IV NS 0.9% 1,000 ML IV PRN ×2 (01:49→22:03)
--- NOTE | 2021-09-08 03:56 | NUR ---
TELE MONITOR LEADS AND RIGHT AC IV PULLED OUT BY THE PATIENT.
[2021-09-08 04:00] VITALS: BP 156/82
[2021-09-08 07:03] LABS: BASOPHILS % (AUTO) 0.4 % (0.0-2.0); EOSINOPHILS % (AUTO) 3.2 % (0.0-6.0); HEMATOCRIT 38 % (33-45); HEMOGLOBIN 12.9 g/dL (11.5-14.8); LYMPHOCYTES # (AUTO) 1.9 K/uL (0.8-4.8); LYMPHOCYTES % (AUTO) 21.3 % (20.0-44.0); MEAN CORPUSCULAR HGB CONC 34 g/dl (31.0-36.0); MEAN CORPUSCULAR VOLUME 100 fL (82-100); MONOCYTES # (AUTO) 0.6 K/uL (0.1-1.30); MONOCYTES % (AUTO) 7.4 % (2.0-12.0); NEUTROPHILS # (AUTO) 5.9 K/uL (1.8-8.9); NEUTROPHILS % (AUTO) 67.7 % (43.0-81.0); PLATELET COUNT (AUTO) 244 K/uL (150-450); RED BLOOD CELL COUNT(AUTO) 3.86 MIL/uL (4.0-5.2); WHITE BLOOD COUNT (AUTO) 8.7 K/uL (4.3-11.0)
[2021-09-08 07:22] LABS: ALBUMIN 2.9 g/dL (3.4-5.0); BILIRUBIN,TOTAL 0.3 mg/dL (0.2-1.0); CALCIUM, SERUM 8.6 mg/dL (8.5-10.1); CREATININE 0.9 mg/dL (0.6-1.3); MAGNESIUM 1.7 mg/dL (1.8-2.4); TOTAL PROTEIN, SERUM 7.2 g/dL (6.4-8.2)
--- NOTE | 2021-09-08 07:35 | NUR ---
RN OPENING NOTES Patient seen comfortably lying in bed, no apparent distress noted, no SOB, respirations even and unlabored, denies any pain or discomfort at this time, no grimacing. Safety precautions in place, brakes locked, side rails up X 2, call light left within reach, will monitor closely for any changes.
[2021-09-08] MEDS ORDERED: NAPR-1192 PO (07:48)
[2021-09-08] MEDS ORDERED: LORA-258 PO (07:48)
[2021-09-08] MEDS ORDERED: FESO4TAB PO (07:48)
[2021-09-08 08:00] VITALS: BP 150/71
[2021-09-08] MEDS ORDERED: PANTOPRAZOLE 40 MG VIAL IV SCH (09:00)
[2021-09-08] MEDS: PANTOPRAZOLE 40 MG TABLET.DR PO SCH (09:04)
--- NOTE | 2021-09-08 09:15 | NUR ---
Patient for IV peripheral line insertion, explained procedure to patient, patient made aware that the procedure will cause her some discomfort, encouraged not to move extremity. IV peripheral line successfully inserted, X1 try, IV peripheral line at left hand gauge number 24, patent and flushing well, dressings dry and intact. Encouraged resident not to touch site, verbalized understanding and gratitude, will monitor closely for any changes.
[2021-09-08] MEDS: Magnesium 1GM/D5W 100ML PREMIX 100 ML IV SCH ×2 (09:34→11:01)
[2021-09-08] MEDS: DILTIAZEM HCL CD 240 MG PO SCH (11:01)
[2021-09-08] MEDS: APIXABAN 5 MG TABLET PO SCH ×2 (11:01→16:49)
[2021-09-08] MEDS ORDERED: LORAZEPAM 0.5 MG TABLET PO PRN (12:00)
[2021-09-08 15:54] VITALS: BP 156/82
[2021-09-08] MEDS: ACETAMINOPHEN 325 MG TABLET PO SCH (16:49)
--- NOTE | 2021-09-08 18:29 | NUR ---
RN CLOSING NOTES Patient in bed, AO X 1, Ivorian speaking, with episodes of forgetfulness and confusion, reorientation provided as needed, no apparent distress noted, no SOB, respirations even and unlabored, no dizziness, no palpitations, denies any pain or discomfort. Due medications given per MD order, tolerating well. All needs attended, kept clean and dry, call light left within reach, safety precautions in place, brakes locked, side rails up X 2, will endorse to next shift for continuity of care.
--- NOTE | 2021-09-08 19:30 | NUR ---
TELE/RN OPENING NOTE RECEIVED PATIENT RESTING IN BED. AWAKE, ALERT AND ORIENTED X 1. PRIMARILY SWEDISH SPEAKING. NO S/SX OF PAIN NOTED AT THIS TIME. CONTINUES ON ROOM AIR WITH NO S/SX OF RESPIRATORY DISTRESS NOTED. IV ACCESS TO LEFT HAND #24G INTACT AND PATENT. CONTINUES ON IVF NS @ 100ML/HR. CONTINUES ON IV ABX. CONTINUES ON TELE MONITORING WITH CURRENT READING AFIB HR 85. CALL LIGHT WITHIN REACH. ASPIRATION, FALL AND SAFETY PRECAUTIONS MAINTAINED. WILL CONTINUE TO MONITOR.
[2021-09-08 20:00] VITALS: BP 128/56
[2021-09-08] MEDS: CEFTRIAXONE 1 G in IV D5W 50 ML IV SCH (22:02)
[2021-09-08] MEDS: QUETIAPINE FUMARATE 100 MG TABLET PO SCH (22:02)
[2021-09-09] VITALS: BP 159/80
[2021-09-09 04:00] VITALS: BP 146/68
[2021-09-09] MEDS: IV NS 0.9% 1,000 ML IV PRN ×2 (06:01→23:51)
--- NOTE | 2021-09-09 06:45 | NUR ---
TELE/RN CLOSING NOTE PATIENT CURRENTLY SLEEPING IN BED. ALERT AND ORIENTED X 1. PRIMARILY ANDORRAN SPEAKING. NO S/SX OF PAIN NOTED AT THIS TIME. CONTINUES ON ROOM AIR WITH NO S/SX OF RESPIRATORY DISTRESS NOTED. IV ACCESS TO LEFT HAND #24G INTACT AND PATENT. CONTINUES ON IVF NS @ 100ML/HR. CONTINUES ON IV ABX. CONTINUES ON TELE MONITORING WITH CURRENT READING AFIB HR 62. CALL LIGHT WITHIN REACH. ASPIRATION, FALL AND SAFETY PRECAUTIONS MAINTAINED. WILL ENDORSE PLAN OF CARE TO ONCOMING SHIFT.
--- NOTE | 2021-09-09 07:00 | NUR ---
TELE/RN NOTE PATIENT PULLED OUT IV AT CHANGE OF SHIFT. SMALL AMOUNT OF BLEEDING NOTED. PRESSURES DRESSING APPLIED. ENDORSED TO AM SHIFT MANOJ BENÍTEZ.
--- NOTE | 2021-09-09 07:45 | NUR ---
TELE/RN OPENING NOTES RECEIVED PATIENT AWAKE ALERT AND ORIENTED X1-2. PATIENT IS ON ROOM AIR. PATIENT IN NO APPARENT RESPIRATORY DISTRESS NOTED. NO COMPLAINED OF PAIN NOTED AT THIS TIME. TELE MONITOR READING AFIB 68 BPM. WILL CONTINUE TO MONITOR.
[2021-09-09 08:00] VITALS: BP 156/77
[2021-09-09 08:32] LABS: BASOPHILS % (AUTO) 0.6 % (0.0-2.0); EOSINOPHILS % (AUTO) 2.9 % (0.0-6.0); HEMATOCRIT 39 % (33-45); LYMPHOCYTES # (AUTO) 1.7 K/uL (0.8-4.8); MEAN CORPUSCULAR HGB CONC 34 g/dl (31.0-36.0); MEAN CORPUSCULAR VOLUME 100 fL (82-100); MONOCYTES # (AUTO) 0.7 K/uL (0.1-1.30); MONOCYTES % (AUTO) 8.2 % (2.0-12.0); NEUTROPHILS # (AUTO) 5.8 K/uL (1.8-8.9); NEUTROPHILS % (AUTO) 68.3 % (43.0-81.0); PLATELET COUNT (AUTO) 227 K/uL (150-450); RED BLOOD CELL COUNT(AUTO) 3.87 MIL/uL (4.0-5.2); WHITE BLOOD COUNT (AUTO) 8.5 K/uL (4.3-11.0)
[2021-09-09 08:51] LABS: ALBUMIN 2.6 g/dL (3.4-5.0); BILIRUBIN,TOTAL 0.4 mg/dL (0.2-1.0); CREATININE 0.7 mg/dL (0.6-1.3); MAGNESIUM 2.1 mg/dL (1.8-2.4); PHOSPHORUS 3.2 mg/dL (2.5-4.9); POTASSIUM 3.7 mmol/L (3.5-5.1)
[2021-09-09] MEDS: MEMANTINE HCL 5 MG TABLET PO SCH (09:19)
[2021-09-09] MEDS: PANTOPRAZOLE 40 MG TABLET.DR PO SCH (09:20)
[2021-09-09] MEDS: ESCITALOPRAM OXALATE (10 MG) 10 MG TABLET PO SCH (09:20)
[2021-09-09] MEDS: METOPROLOL SUCCINATE 50 MG TAB.SR.24H PO SCH (09:20)
[2021-09-09] MEDS: ACETAMINOPHEN 325 MG TABLET PO SCH ×2 (09:20→16:48)
[2021-09-09] MEDS: DILTIAZEM HCL CD 240 MG PO SCH (09:20)
[2021-09-09] MEDS: ATORVASTATIN 10 MG TABLET PO SCH (09:21)
[2021-09-09 09:28] LABS: TOTAL PROTEIN, SERUM 6.8 g/dL (6.4-8.2)
[2021-09-09] MEDS: APIXABAN 5 MG TABLET PO SCH ×2 (09:32→16:49)
--- NOTE | 2021-09-09 10:17 | NUR ---
RN NOTES DR. PINA ORDER FOR MIDLINE INSERTION. NOTED AND CARRIED OUT.
[2021-09-09 14:07] LABS: *SPE A/G RATIO 0.8 (0.7-1.7); *SPE ALPHA-1-GLOBULIN 0.3 g/dL (0.0-0.4); *SPE M-SPIKE Not Observed g/dL (Not Observed)
[2021-09-09 16:00] VITALS: BP 137/75
--- NOTE | 2021-09-09 17:35 | NUR ---
MS/RN NOTES PATIENT PULLED OUT IV ACCESS MD WAS AWARE.
--- NOTE | 2021-09-09 19:14 | NUR ---
TELE/RN CLOSING NOTES PATIENT IS ON BED AWAKE ALERT AND ORIENTED X4. PATIENT IS ON ROOM AIR. PATIENT IN NO APPARENT RESPIRATORY DISTRESS NOTED. NO COMPLAINED OF PAIN NOTED AT THIS TIME. SEEN AND EXAMINED BY MD WITH ORDERS MADE AND CARRIED OUT. ALL DUE MEDICATIONS WAS GIVEN. SAFETY PRECAUTIONS WAS IN PLACED. BED IN LOWEST POSITION AND LOCKED. SIDERAILS UP X2. CALL LIGHT WITHIN REACH. PATIENT PULLED OUT THE IV ACCESS AND PLACED A BILATERAL WRIST RESTRAINED DR. PINA WAS AWARE. MIDLINE NURSE WAS REINSERTED IV ACCESS. WILL ENDORSED TO VOCATIONAL TECHNICAL EDUCATION DIRECTOR FOR MARTÍN.
--- NOTE | 2021-09-09 19:45 | NUR ---
MS RN OPENING NOTES: RECEIVED PATIENT IN BED, BED IN LOW POSITION, CALL LIGHTS WITHIN REACH, NO COMPLAIN OF PAIN AND DISCOMFORT AT THIS TIME, PATIENT IS A/OX1 WITH HIST OF DEMENTIA, WITH HISTORY OF PULLING IV LINE, CURRENTLY WITH MIDLINE PLACE AT JEANNE ORDER A RESTRAINT DAUGHTER IN LAW, WAS NOTIFIED AND MADE AWARE, PATIENT CURRENTLY ON RESTRAINT CHECKED SKIN INTEGRITY Q2H, PLACED IN BED COMFORTABLY, PATIENT KEPT CLEAN AND DRY, ALL NEEDS MET, WILL CONTINUE TO MONITOR.
[2021-09-09 20:00] VITALS: BP 147/72
[2021-09-09] MEDS: QUETIAPINE FUMARATE 100 MG TABLET PO SCH (21:55)
[2021-09-09] MEDS: CEFTRIAXONE 1 G in IV D5W 50 ML IV SCH (23:10)
--- NOTE | 2021-09-10 03:30 | NUR ---
RN NOTES: PATIENT WAS NOTED WITH HIGH BP AT 186/102 PULSE 80 NOTIFIED ADVISOR ADVOCATE [employer]EL [employer] FOUNDER NIKI AND ORDERED PRN MEDICATION FOR HTN, ORDERED HYDRALAZINE 10MG Q8H PRN FOR SBP>150, NOTED AND CARRIED OUT
[2021-09-10] MEDS ORDERED: hydrALAZINE HCL IV 20 MG VIAL IV PRN (04:00)
--- NOTE | 2021-09-10 07:30 | NUR ---
RN NOTES PATIENT IN BED AWAKE, VERBALLY RESPONSIVE, A/O X 1. ON ROOM AIR SATTING AT 98%, NO ACUTE DISTRESS NOTED. MIDLINE ON JEANNE INTACT, IV HYDRATION OF NSS @100ML/HR INFUSING WELL. WRIST RESTRAINT APPLIED, SAFETY PRECAUTIONS OBSERVED. WILLL CONTINUE TO MONITOR.
--- NOTE | 2021-09-10 07:35 | NUR ---
rn closing notes patient was awake in bed, bed in low position, call lights within reach, no complain of pain and discomfort at this time, patient was on restraint due to consistently pulling iv, skin assessment done patent and intact, patient on ra bed in low position, call lights within reach endorse to incoming shift.
[2021-09-10 08:00] VITALS: BP 131/56
--- NOTE | 2021-09-10 08:28 | NUR ---
RN NOTES PT AT BEDSIDE W/ PATIENT; ABLE TO AMBULATE PATIENT W/ FWW.
--- NOTE | 2021-09-10 08:40 | NUR ---
RN NOTES PATIENT EATING BREAKFAST AT THIS TIME IN BED.
[2021-09-10] MEDS: MEMANTINE HCL 5 MG TABLET PO SCH (08:50)
[2021-09-10] MEDS: ESCITALOPRAM OXALATE (10 MG) 10 MG TABLET PO SCH (08:50)
[2021-09-10] MEDS: ATORVASTATIN 10 MG TABLET PO SCH (08:50)
[2021-09-10] MEDS: PANTOPRAZOLE 40 MG TABLET.DR PO SCH (08:50)
[2021-09-10] MEDS: ACETAMINOPHEN 325 MG TABLET PO SCH ×2 (08:51→16:03)
[2021-09-10] MEDS: METOPROLOL SUCCINATE 50 MG TAB.SR.24H PO SCH (08:52)
[2021-09-10] MEDS: DILTIAZEM HCL CD 240 MG PO SCH (08:53)
[2021-09-10] MEDS: APIXABAN 5 MG TABLET PO SCH ×2 (08:53→16:03)
[2021-09-10] MEDS: CYANOCOBALAMIN 1,000 MCG/ML VIAL IM SCH (09:02)
[2021-09-10 16:00] VITALS: BP 123/84
--- NOTE | 2021-09-10 18:30 | NUR ---
RN NOTES PATIENT IN BED, AWAKE, A/O X1, CONFUSED. ON ROOM AIR, SPO2 97 %, NO SOB NOTED. WITH JAGUAR SOFT WRIST RESTRAINTS. ON IVF OF NS @100ML/HOUR, TOLERATED WELL. ALL DUE MEDS GIVEN TOLERATED WELL, NO ASE NOTED. SAFETY PRECAUTIONS APPLIED, BED ON ITS LOWEST POSITION, BREAKS ON, BSR UP, CALL LIGHT PLACED WITHIN EASY REACH. VISUAL CHECK DONE AT LEAST Q2HR. WILL CONTINUE TO MONITOR.
--- NOTE | 2021-09-10 19:00 | NUR ---
RN NOTES PATIENT PULLED OUT MIDLINE ON RIGHT UPPER ARM, ABLE TO REMOVE BILATERAL WRIST RESTRAINT, TRIED TO INSERT PERIPHERAL LINE BUT PATIENT IS HARDSTICK. WITH STANDING ORDER FOR MIDLINE INSERTION.
--- NOTE | 2021-09-10 19:53 | NUR ---
RN OPENING NOTES RECEIVED PATIENT IN BED, NON-COHERENT. NO S/S OF APPARENT DISTRESS. NOT EXHIBITING PAIN VIA FLACC. NO IV LINE IN PLACE-- RECEIVED PATIENT TAKEN OFF HER IV LINE, MANOJ PHAN ORDERED NEW MIDLINE. BILATERAL SOFT WRIST RESTRAINTS IN PLACE. WILL CONTINUE TO MONITOR PATIENT.
[2021-09-10 20:12] VITALS: BP 152/85
[2021-09-10] MEDS: QUETIAPINE FUMARATE 100 MG TABLET PO SCH (21:37)
[2021-09-11] MEDS: methylPREDNISolone SOD SUCC 40 MG/ML VIAL IV SCH ×3 (00:08→20:54)
[2021-09-11] MEDS: CEFTRIAXONE 1 G in IV D5W 50 ML IV SCH ×2 (00:08→22:49)
--- NOTE | 2021-09-11 07:17 | NUR ---
REPORT GIVEN TO BIBIANA FOR CONTINUATION OF CARE. NO SIGNIFICANT CHANGE WITH PATIENT.
[2021-09-11 07:29] LABS: BASOPHILS % (AUTO) 0.1 % (0.0-2.0); EOSINOPHILS % (AUTO) 0.1 % (0.0-6.0); HEMATOCRIT 37 % (33-45); HEMOGLOBIN 12.8 g/dL (11.5-14.8); LYMPHOCYTES % (AUTO) 12.4 % (20.0-44.0); MEAN CORPUSCULAR HGB CONC 34 g/dl (31.0-36.0); MEAN CORPUSCULAR VOLUME 98 fL (82-100); MONOCYTES # (AUTO) 0.1 K/uL (0.1-1.30); NEUTROPHILS # (AUTO) 6.8 K/uL (1.8-8.9); NEUTROPHILS % (AUTO) 86.4 % (43.0-81.0); PLATELET COUNT (AUTO) 225 K/uL (150-450); WHITE BLOOD COUNT (AUTO) 7.9 K/uL (4.3-11.0)
[2021-09-11 07:36] LABS: CALCIUM, SERUM 8.5 mg/dL (8.5-10.1); CREATININE 0.8 mg/dL (0.6-1.3); MAGNESIUM 1.8 mg/dL (1.8-2.4); POTASSIUM 3.8 mmol/L (3.5-5.1)
--- NOTE | 2021-09-11 07:40 | NUR ---
RN NOTES RECEIVED PATIENT IN BED RESTING. NO SIGNS OF ACUTE DISTRESS NOTED. ON ROOM AIR, NO SOB NOTED. LEFT HAND SL #22G INTACT WITH IVF OF NS@50ML/HR INFUSING WELL. BILATERAL SOFT WRIST RESTRAINTS APPLIED, BED ON ITS LOWEST POSITION, BRAKES ON, SIDE RAILS UP FOR SAFETY, CALL LIGHT PLACED WITHIN EASY REACH, WILL CONTINUE TO MONITOR.
[2021-09-11 08:00] VITALS: BP 146/95
[2021-09-11] MEDS: CYANOCOBALAMIN 1,000 MCG/ML VIAL IM SCH (08:41)
[2021-09-11] MEDS: MEMANTINE HCL 5 MG TABLET PO SCH (08:41)
[2021-09-11] MEDS: ATORVASTATIN 10 MG TABLET PO SCH (08:41)
[2021-09-11] MEDS: PANTOPRAZOLE 40 MG TABLET.DR PO SCH (08:41)
[2021-09-11] MEDS: DILTIAZEM HCL CD 240 MG PO SCH (08:42)
[2021-09-11] MEDS: ESCITALOPRAM OXALATE (10 MG) 10 MG TABLET PO SCH (08:42)
[2021-09-11] MEDS: METOPROLOL SUCCINATE 50 MG TAB.SR.24H PO SCH (08:43)
[2021-09-11] MEDS: ACETAMINOPHEN 325 MG TABLET PO SCH ×2 (08:44→16:41)
[2021-09-11] MEDS: APIXABAN 5 MG TABLET PO SCH ×2 (08:44→16:41)
[2021-09-11] MEDS: IV NS 0.9% 1,000 ML IV PRN (10:37)
--- NOTE | 2021-09-11 12:20 | NUR ---
RN NOTES DR. PINA CURRENTLY IN UNIT TO SEE PATIENT.
[2021-09-11 16:00] VITALS: BP 139/79
--- NOTE | 2021-09-11 18:54 | NUR ---
RN NOTES PATIENT IN BED, ASLEEP, A/O X1, CONFUSED. ON ROOM AIR, SPO2 97 %, NO SOB NOTED. WITH JAGUAR SOFT WRIST RESTRAINTS. ON IVF OF NS @100ML/HOUR, TOLERATED WELL. ALL DUE MEDS GIVEN TOLERATED WELL, NO ASE NOTED. SAFETY PRECAUTIONS APPLIED, BED ON ITS LOWEST POSITION, BRAKES ON, BSR UP, CALL LIGHT PLACED WITHIN EASY REACH. VISUAL CHECK DONE FREQUENTLY. WILL CONTINUE TO MONITOR.
--- NOTE | 2021-09-11 19:30 | NUR ---
MS RN OPENING NOTES PATIENT RESTING IN BED, ALERT/ORIENTED X 1, CONFUSED. PATIENT STABLE ON RA, NO S/S OF DISTRESS OR SOB NOTED, BREATHING EVEN AND UNLABORED. PATIENT ON BILATERAL WRIST SOFT RESTRAINTS. LEFT HAND #22G IV ACCESS INTACT AND RUNNING NS @ 50 ML/HR. SAFETY MEASURES IN PLACE: CALL LIGHT WITHIN REACH, SIDE RAILS UP X 2, BED LOCKED IN LOW POSITION, BED ALARM ON. WILL CONTINUE TO MONITOR PATIENT THROUGHOUT SHIFT
[2021-09-11 20:00] VITALS: BP 147/88
[2021-09-11] MEDS: QUETIAPINE FUMARATE 100 MG TABLET PO SCH (22:20)
--- NOTE | 2021-09-12 06:54 | NUR ---
MS CLOSING NOTES PATIENT SLEEPING IN BED, APPEARS COMFORTABLE AND NOT IN ANY DISTRESS. NO SIGNIFICANT CHANGES THROUGHOUT SHIFT. PATIENT STABLE ON RA, NO S/S OF DISTRESS OR SOB NOTED, BREATHING EVEN AND UNLABORED. PATIENT ON BILATERAL WRIST SOFT RESTRAINTS. LEFT HAND #22G IV ACCESS INTACT AND RUNNING NS @ 50 ML/HR. SAFETY MEASURES IN PLACE: CALL LIGHT WITHIN REACH, SIDE RAILS UP X 2, BED LOCKED IN LOW POSITION, BED ALARM ON. WILL ENDORSE TO DAY SHIFT NURSE FOR CONTINUITY OF CARE
--- NOTE | 2021-09-12 07:30 | NUR ---
MS OPENING NOTES RECEIVED PATIENT IN BED, AWAKE , A/O X1 .IN COMFORTABLE POSITION. IN NO APPARENT DISTRESS NOTED. BREATHING EVEN AND UNLABORED. PATIENT STABLE ON RA, NO S/S OF DISTRESS OR SOB NOTED. PATIENT ON BILATERAL WRIST SOFT RESTRAINTS. PATIENT WITH LEFT HAND #22G IV ACCESS INTACT AND RUNNING NS @ 50 ML/HR, INFUSING WELL. SAFETY MEASURES IN PLACE: CALL LIGHT WITHIN REACH, SIDE RAILS UP X 2, BED LOCKED IN LOW POSITION, BED ALARM ON. WILL CONTINUE TO MONITOR PT. ACCORDINGLY
[2021-09-12 08:00] VITALS: BP 169/91
[2021-09-12] MEDS: methylPREDNISolone SOD SUCC 40 MG/ML VIAL IV SCH ×2 (09:10→21:19)
[2021-09-12] MEDS: CYANOCOBALAMIN 1,000 MCG/ML VIAL IM SCH (09:10)
[2021-09-12] MEDS: DILTIAZEM HCL CD 240 MG PO SCH (09:11)
[2021-09-12] MEDS: ATORVASTATIN 10 MG TABLET PO SCH (09:12)
[2021-09-12] MEDS: ESCITALOPRAM OXALATE (10 MG) 10 MG TABLET PO SCH (09:12)
[2021-09-12] MEDS: ACETAMINOPHEN 325 MG TABLET PO SCH ×2 (09:12→16:29)
[2021-09-12] MEDS: MEMANTINE HCL 5 MG TABLET PO SCH (09:12)
[2021-09-12] MEDS: METOPROLOL SUCCINATE 50 MG TAB.SR.24H PO SCH (09:13)
[2021-09-12] MEDS: PANTOPRAZOLE 40 MG TABLET.DR PO SCH (09:13)
[2021-09-12] MEDS: APIXABAN 5 MG TABLET PO SCH ×2 (09:15→16:29)
[2021-09-12] MEDS: IV NS 0.9% 1,000 ML IV PRN (09:50)
[2021-09-12] MEDS: AMOXICILLIN TRIHYDRATE 250 MG CAPSULE PO SCH ×2 (13:52→21:19)
[2021-09-12 16:00] VITALS: BP 143/94
--- NOTE | 2021-09-12 18:49 | NUR ---
MS RN CLOSING NOTES PATIENT IN BED AWAKE AT THIS TIME, NO ACUTE SIGNS OF DISTRESS NOTED. HOB ELEVATED. A/O X 1. CONFUSED AND RESTLESS AT TIMES. ON BILATERAL SOFT WRIST RESTRAINTS IN PLACE WITH GOOD CIRCULATION AND NO SKIN BREAK NOTED TO WRIST/ARMS. ON ROOM AIR, BREATHING EVEN AND UNLABORED. IV ACCESS ON LEFT HAND #22G INTACT WITH IVF OF NS @ 50 ML/HR, NO S/SX OF INFILTRATION NOTED. ALL NEEDS AND CARE PROVIDED WELL. SAFETY MEASURES KEPT IN PLACE: CALL LIGHT WITHIN REACH, SIDE RAILS UP X 2, BED LOCKED IN LOW POSITION, BED ALARM ON. WILL ENDORSE MARTÍN TO CLOTH MERCERIZER OPERATOR NURSE
[2021-09-12 20:00] VITALS: BP_SYST 111; BP_SYST 147; BP_DIAS 64; BP_DIAS 79; BP_DIAS 99
[2021-09-12] MEDS: QUETIAPINE FUMARATE 100 MG TABLET PO SCH (21:19)
[2021-09-13] MEDS: AMOXICILLIN TRIHYDRATE 250 MG CAPSULE PO SCH ×3 (05:01→21:01)
[2021-09-13] MEDS: IV NS 0.9% 1,000 ML IV PRN (05:19)
--- NOTE | 2021-09-13 07:26 | NUR ---
RN NOTES ALERT/ORIENTED X1, CONFUSED, ETHIOPIAN SPEAKING, BILATERAL WRIST RESTRAINTS, SKIN INTACT, PUREED DIET, CRUSHED MEDS, NS AT 50 ML/HR, AMOXICILLIN PO FOR UTI, SKIN REMAINED INTACT, INCONTINENT, CONTINUE GENTLE HYDRATION, FALL PRECAUTION.
--- NOTE | 2021-09-13 07:53 | NUR ---
RN OPENING NOTE- RECEIVED PATIENT RESTING IN BED. AWAKE, ALERT AND ORIENTED X 1. PRIMARILY BELARUSIAN SPEAKING. NO S/SX OF PAIN NOTED AT THIS TIME. CONTINUES ON ROOM AIR WITH NO S/SX OF RESPIRATORY DISTRESS NOTED. IV ACCESS TO LEFT HAND #24G INTACT AND PATENT. CONTINUES ON IVF NS AT 50/HR.. MEDICAL RESTRAINTS TO PREVENT IV REMOVAL. CALL LIGHT WITHIN REACH. ASPIRATION, FALL AND SAFETY PRECAUTIONS MAINTAINED. WILL CONTINUE TO MONITOR.
[2021-09-13 08:00] VITALS: BP 157/99
[2021-09-13] MEDS: methylPREDNISolone SOD SUCC 40 MG/ML VIAL IV SCH ×2 (09:04→21:01)
[2021-09-13] MEDS: ATORVASTATIN 10 MG TABLET PO SCH (09:04)
[2021-09-13] MEDS: ESCITALOPRAM OXALATE (10 MG) 10 MG TABLET PO SCH (09:04)
[2021-09-13] MEDS: ACETAMINOPHEN 325 MG TABLET PO SCH ×2 (09:04→16:17)
[2021-09-13] MEDS: MEMANTINE HCL 5 MG TABLET PO SCH (09:05)
[2021-09-13] MEDS: PANTOPRAZOLE 40 MG TABLET.DR PO SCH (09:05)
[2021-09-13] MEDS: METOPROLOL SUCCINATE 50 MG TAB.SR.24H PO SCH (09:05)
[2021-09-13] MEDS: DILTIAZEM HCL CD 240 MG PO SCH (09:05)
[2021-09-13] MEDS: APIXABAN 5 MG TABLET PO SCH ×2 (09:07→16:17)
[2021-09-13] MEDS: CYANOCOBALAMIN 1,000 MCG/ML VIAL IM SCH (09:13)
[2021-09-13] MEDS: Magnesium 1GM/D5W 100ML PREMIX 100 ML IV SCH ×2 (11:46→13:04)
--- NOTE | 2021-09-13 18:57 | NUR ---
RN CLOSING NOTE- RESTING IN BED. AWAKE, ALERT AND ORIENTED X 1. PRIMARILY RUSSIAN SPEAKING. NO S/SX OF PAIN NOTED AT THIS TIME. CONTINUES ON ROOM AIR WITH NO S/SX OF RESPIRATORY DISTRESS NOTED. IV ACCESS TO LEFT HAND #24G INTACT AND PATENT. CONTINUES ON IVF NS AT 50/HR.. MEDICAL RESTRAINTS TO PREVENT IV REMOVAL. CALL LIGHT WITHIN REACH. ASPIRATION, FALL AND SAFETY PRECAUTIONS MAINTAINED. WILL CONTINUE TO MONITOR.
[2021-09-13 20:00] VITALS: BP 153/96
[2021-09-13 20:04] LABS: CALCIUM, SERUM 8.5 mg/dL (8.5-10.1); CARBON DIOXIDE 25 mmol/L (21-32); CHLORIDE 106 mmol/L (98-107); CREATININE 0.8 mg/dL (0.6-1.3); GLUCOSE 168 mg/dL (74-106); HEMATOCRIT 38 % (33-45); HEMOGLOBIN 12.4 g/dL (11.5-14.8); LYMPHOCYTES % (AUTO) 7.5 % (20.0-44.0); MAGNESIUM 2.7 mg/dL (1.8-2.4); MEAN CORPUSCULAR HGB CONC 33 g/dl (31.0-36.0); MEAN CORPUSCULAR VOLUME 101 fL (82-100); MONOCYTES # (AUTO) 0.6 K/uL (0.1-1.30); MONOCYTES % (AUTO) 4.8 % (2.0-12.0); NEUTROPHILS # (AUTO) 11.6 K/uL (1.8-8.9); NEUTROPHILS % (AUTO) 87.7 % (43.0-81.0); PLATELET COUNT (AUTO) 300 K/uL (150-450); POTASSIUM 4.1 mmol/L (3.5-5.1); RED BLOOD CELL COUNT(AUTO) 3.74 MIL/uL (4.0-5.2); SODIUM SERUM 140 mmol/L (136-145); UREA NITROGEN, BLOOD 23 mg/dL (7-18); WHITE BLOOD COUNT (AUTO) 13.2 K/uL (4.3-11.0)
--- NOTE | 2021-09-13 20:17 | NUR ---
RN NOTES RECEIVED PATIENT IN BED, ALERT/ORIENTED X1, ROOM AIR, NOT IN APPARENT DISTRESS, NO PAIN, REMOVED PERIPHERAL IV AT START OF SHIFT, UNABLE TO PUT IV LINE, PATIENT IS COMBATIVE AND UNCOOPERATIVE, BILATERAL WRIST RESTRAINTS RENEWED. KEPT SAFE, WILL CONTINUE TO MONITOR.
[2021-09-13 20:33] VITALS: BP 153/96
[2021-09-13] MEDS: QUETIAPINE FUMARATE 100 MG TABLET PO SCH (21:22)
[2021-09-14] MEDS: AMOXICILLIN TRIHYDRATE 250 MG CAPSULE PO SCH ×3 (05:39→20:24)
--- NOTE | 2021-09-14 06:55 | NUR ---
RN NOTES ALERT AND AWAKE, WITH CONFUSION, REMAINED IN ROOM AIR, NO DIFFICULTY SWALLOWING, PUREED, CRUSHED MEDS, CONTINUE AMOXICILLIN 500 PO, FALL PRECAUTION, RESTRAINTS MONITORING.
--- NOTE | 2021-09-14 08:28 | NUR ---
RN OPENING NOTE PT RESTING IN BED ASLEEP. AROUSES TO LIGHT TOUCH. A/O X1 AND GREENLAND[place] SPEAKING. CONFUSED. NO SPINNING LATHE OPERATOR AUTOMATIC PRESENT. NO EDEMA PRESENT. ON BEDREST. DIAPER PRESENT. SKIN IS INTACT. ON MECHANICAL SOFT DIET, ON ASPIRATION PRECAUTIONS. IV PRESENT ON L FA24 G AND FLUSHES WELL. N/S RUNNING AT 100 ML/HR. LABS AND ORDERS REVIEWED. SAFETY MEASURES IN PLACE. SIDE RAILS RAISED. BED LOWERED. CALL LIGHT WITHIN REACH. WILL CONTINUE TO MONITOR.
[2021-09-14 08:46] VITALS: BP 170/107
[2021-09-14] MEDS: methylPREDNISolone SOD SUCC 40 MG/ML VIAL IV SCH (09:35)
[2021-09-14] MEDS: CYANOCOBALAMIN 1,000 MCG/ML VIAL IM SCH (09:35)
[2021-09-14] MEDS: ATORVASTATIN 10 MG TABLET PO SCH (09:36)
[2021-09-14] MEDS: ESCITALOPRAM OXALATE (10 MG) 10 MG TABLET PO SCH (09:36)
[2021-09-14] MEDS: DILTIAZEM HCL CD 240 MG PO SCH (09:36)
[2021-09-14] MEDS: MEMANTINE HCL 5 MG TABLET PO SCH (09:36)
[2021-09-14] MEDS: METOPROLOL SUCCINATE 50 MG TAB.SR.24H PO SCH (09:37)
[2021-09-14] MEDS: PANTOPRAZOLE 40 MG TABLET.DR PO SCH (09:37)
[2021-09-14] MEDS: ACETAMINOPHEN 325 MG TABLET PO SCH ×2 (09:37→16:54)
[2021-09-14] MEDS: APIXABAN 5 MG TABLET PO SCH ×2 (09:42→16:57)
[2021-09-14 16:00] VITALS: BP 143/66
--- NOTE | 2021-09-14 16:42 | NUR ---
RN NOTE PT CONFUSED, A/O X1. PT PULLED OUT IV LINE. CATHETER INTACT. ALERTED CN ALVIN. OKAYED BY CN TO LEAVE IV OUT. PT TO BE DISCHARGED TOMORROW. NO SCHEDULED IV MEDS TO BE GIVEN. WILL CONTINUE TO MONITOR.
--- NOTE | 2021-09-14 18:29 | NUR ---
RN CLOSING NOTE PT RESTING IN BED AWAKE. A/O X1 AND TURK[place] SPEAKING. CONFUSED. NO COMMERCIAL LOAN MANAGER PRESENT. NO EDEMA PRESENT. ON BEDREST. DIAPER PRESENT. SKIN IS INTACT. ON MECHANICAL SOFT DIET, ON ASPIRATION PRECAUTIONS. NO IV PRESENT. CN AWARE. NO SCHEDULED MEDS TO BE GIVEN. LABS AND ORDERS REVIEWED. SAFETY MEASURES IN PLACE. SIDE RAILS RAISED. BED LOWERED. CALL LIGHT WITHIN REACH. WILL GIVE REPORT TO NIGHT NURSE FOR [facility].
[2021-09-14 20:37] VITALS: BP_SYST 159; BP_SYST 188; BP_DIAS 109; BP_DIAS 86
[2021-09-14] MEDS: QUETIAPINE FUMARATE 100 MG TABLET PO SCH (22:01)
[2021-09-15] MEDS: AMOXICILLIN TRIHYDRATE 250 MG CAPSULE PO SCH ×2 (05:12→13:07)
--- NOTE | 2021-09-15 07:31 | NUR ---
MS RN CLOSING NOTES PATIENT WAS LAST SEEN SLEEPING IN BED. PATIENT IS A/O X1, CONFUSED AND UNCOOPERATIVE AT TIMES. PATIENT'S STABLE ON ROOM AIR. NO IV PRESENT, CHARGE NURSE AWARE. PATIENT'S IN NO ACUTE DISTRESS AT THIS TIME. SAFETY MEASURES IN PLACE: SIDE RAILS UP X, CALL LIGHT WITHIN REACH OF THE PATIENT, BED LOCKED, BED ALARM ON. ENDORSED CARE TO THE DAY SHIFT NURSE.
[2021-09-15] MEDS: ATORVASTATIN 10 MG TABLET PO SCH (08:16)
[2021-09-15] MEDS: ESCITALOPRAM OXALATE (10 MG) 10 MG TABLET PO SCH (08:16)
[2021-09-15] MEDS: METOPROLOL SUCCINATE 50 MG TAB.SR.24H PO SCH (08:16)
[2021-09-15] MEDS: MEMANTINE HCL 5 MG TABLET PO SCH (08:17)
[2021-09-15] MEDS: DILTIAZEM HCL CD 240 MG PO SCH (08:17)
[2021-09-15] MEDS: PANTOPRAZOLE 40 MG TABLET.DR PO SCH (08:17)
[2021-09-15] MEDS: APIXABAN 5 MG TABLET PO SCH ×2 (08:18→16:37)
[2021-09-15] MEDS: CYANOCOBALAMIN 1,000 MCG/ML VIAL IM SCH (08:48)
[2021-09-15] MEDS: ACETAMINOPHEN ES 500 MG TABLET PO SCH ×2 (08:48→16:36)
[2021-09-15 09:32] VITALS: BP 206/109
[2021-09-15 10:21] LABS: EOSINOPHILS % (AUTO) 2.2 % (0.0-6.0); HEMATOCRIT 40 % (33-45); HEMOGLOBIN 13.3 g/dL (11.5-14.8); LYMPHOCYTES # (AUTO) 2.5 K/uL (0.8-4.8); LYMPHOCYTES % (AUTO) 20.8 % (20.0-44.0); MEAN CORPUSCULAR HGB CONC 34 g/dl (31.0-36.0); MEAN CORPUSCULAR VOLUME 100 fL (82-100); MONOCYTES % (AUTO) 8.1 % (2.0-12.0); NEUTROPHILS # (AUTO) 8.3 K/uL (1.8-8.9); NEUTROPHILS % (AUTO) 68.9 % (43.0-81.0); PLATELET COUNT (AUTO) 279 K/uL (150-450); RED BLOOD CELL COUNT(AUTO) 3.96 MIL/uL (4.0-5.2); WHITE BLOOD COUNT (AUTO) 12.1 K/uL (4.3-11.0)
[2021-09-15 10:27] LABS: CALCIUM, SERUM 8.3 mg/dL (8.5-10.1); CREATININE 0.6 mg/dL (0.6-1.3); MAGNESIUM 2.3 mg/dL (1.8-2.4); POTASSIUM 3.3 mmol/L (3.5-5.1)
[2021-09-15] MEDS ORDERED: AMOX250C PO (11:46)
[2021-09-15 12:14] LABS: BAND % (MANUAL) 1 % (0.0-5.0); EOSINOPHILS % (MANUAL) 4 % (0-4); LYMPHOCYTES % (MANUAL) 15 % (16-48); MONOCYTES % (MANUAL) 6 % (0-11.0); NEUTROPHILS % (MANUAL) 74 (42-76)
--- NOTE | 2021-09-15 17:00 | NUR ---
MS/SEAMER OPERATOR NOTES PATIENT IS ALERT AND ORIENTED X1, ABLE TO MAKE NEEDS KNOWN. STABLE ON ROOM AIR. PATIENT IS MEDICALLY STABLE AND DR. PINA ORDERED DISCHARGE TO HOME. DISCHARGE INSTRUCTION GIVEN TO GRANDDAUGHTER, ABLE TO UNDERSTAND INSTRUCTIONS. WHEELED PATIENT DOWN TO THE LOBBY AND GRANDDAUGHTER TOOK PATIENT HOME VIA PRIVATE CAR.
[2021-09-16] MEDS ORDERED: TDAP [DIPH/PERTUSSIS/TET] 0.5 ML VIAL IM ONE (09:55)
== END 2021-09-15 17:00 | disposition home or self-care (01) | DRG 871 ==
LOC: ER 21:01 → TELE 09-08 00:37 → MED 09-09 09:36
PROVIDERS: ADMIT Legal Medicine; ATTEND Legal Medicine
PROC: 05HB33Z Insertion of Infusion Device into Right Basilic Vein, Percutaneous Approach (ICD-10-PCS; principal; 2021-09-09)
PROC: 05HD33Z Insertion of Infusion Device into Right Cephalic Vein, Percutaneous Approach (ICD-10-PCS; 2021-09-09)
DX: A41.9 Sepsis, unspecified organism (principal); G93.41 Metabolic encephalopathy; N39.0 Urinary tract infection, site not specified; I48.20 Chronic atrial fibrillation, unspecified; I11.0 Hypertensive heart disease with heart failure; I50.9 Heart failure, unspecified; E78.5 Hyperlipidemia, unspecified; Z79.01 Long term (current) use of anticoagulants; F32.9 Major depressive disorder, single episode, unspecified; F03.90 Unspecified dementia, unspecified severity, without behavioral disturbance, psychotic disturbance, mood disturbance, and anxiety; Z20.822 Contact with and (suspected) exposure to COVID-19; Z79.899 Other long term (current) drug therapy; I70.0 Atherosclerosis of aorta; Z86.73 Personal history of transient ischemic attack (TIA), and cerebral infarction without residual deficits; K80.50 Calculus of bile duct without cholangitis or cholecystitis without obstruction; N28.1 Cyst of kidney, acquired; N28.81 Hypertrophy of kidney; K59.00 Constipation, unspecified; Z90.49 Acquired absence of other specified parts of digestive tract; K42.9 Umbilical hernia without obstruction or gangrene; D25.9 Leiomyoma of uterus, unspecified; K57.30 Diverticulosis of large intestine without perforation or abscess without bleeding
CPT/HCPCS: 36415; 70450-TC; 71045-TC; 80048-TC; 80053-TC; 80076-TC; 81001; 82140-TC; 83605-TC; 83690-TC; 83735-TC; 84100-TC; 84155; 84165; 84484-TC; 85025-TC; 85652-TC; 85730-TC; 87040-TC; 87081-TC; 87086-TC; 90715; 93307-TC; 97112-TC; 97116-TC; 97530-TC; C9803; G0378; J0360; J0696; J2405; J2920; J3420; J3475; J7030; J7040; J7060